=== PATIENT | male | born 1990 | race Caucasian/White ===

== ENCOUNTER 2022-03-28 15:57 | Emergency (ER) | payer OTHER, MEDICAID, SELFPAY ==
[2022-03-28 16:12] VITALS: BP 146/78; PULSE 59; RESP 16; TEMP 36.7; O2SAT 99
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
[2022-03-28 19:21] VITALS: BP 115/76; PULSE 85; RESP 16; TEMP 36.8; O2SAT 100
--- NOTE | 2022-03-28 19:27 | PC.NURSE ---
1924 Dr. Melchor at the bedside completing FAST exam with ultrasound
[2022-03-28] MEDS: KETOROLAC 30 MG/ML VIAL IM (19:40)
[2022-03-28] MEDS: HYDROCODONE/ACET 5/325 PREPACK 1 BOTTLE MISC (19:40)
[2022-03-28 20:13] VITALS: BP 122/65; PULSE 65; RESP 18; O2SAT 99
== END 2022-03-28 20:13 | disposition home or self-care (01) ==
PROVIDERS: Emergency Provider Emergency Medicine
DX: R07.89 Other chest pain (principal); M25.511 Pain in right shoulder; S83.91XA Sprain of unspecified site of right knee, initial encounter; V89.2XXA Person injured in unspecified motor-vehicle accident, traffic, initial encounter
CPT/HCPCS: 70450; 71101; 72125; 73030; 73502; 73562; 96372; 99283; 99284; J1885

== ENCOUNTER 2022-07-13 10:05 | Emergency (ER) | payer OTHER, MEDICAID, SELFPAY ==
[2022-07-13] VITALS (9 sets, daily range): BP systolic 127–161; BP diastolic 73–90; PULSE 42–61; RESP 24; TEMP 35.1; O2SAT 96–100; BMI 24.4
--- NOTE | 2022-07-13 10:06 | DI.US.S_ITS ---
PROCEDURE: US SCROTUM INDICATIONS: SEVERE LEFT TESTICLE PAIN TECHNIQUE: Real-time scanning was performed of the scrotum and testicles, with image documentation. Color and pulse Doppler interrogation was performed of both testicles. COMPARISON: None. FINDINGS: Right: Testicle is normal in size at 5.2 x 4.1 x 2.2 cm, and homogenous in echotexture. There is a 1.5 x 1.9 x 1.1 cm simple cyst in the epididymal head. Epididymis is otherwise normal in overall size and morphology. No hydrocele or varicoceles. Overlying scrotal skin is normal in thickness. Left: Testicle is normal in size at 5.0 x 3.4 x 1.7 cm, and homogeneous in echotexture. Epididymis is normal in overall size and morphology. No hydrocele or varicoceles. Overlying scrotal skin is normal in thickness. There is no abnormality on ultrasound in the area of the palpable lump. Doppler: Color and pulse Doppler demonstrate normal and symmetric arterial flow in both testicles. IMPRESSION: 1. A cause for severe left testicular pain is not identified. No findings to suggest testicular torsion. No testicular mass. 2. No abnormality is identified in the area of palpable abnormality in the left scrotum. 3. A 1.9 cm simple epididymal cyst or spermatocele. Dictated by: Latha Navarro M.D. on 07/13/2022 at 11:57 Approved by: Latha Navarro M.D. on 07/13/2022 at 12:02
[2022-07-13] MEDS: KETOROLAC 30 MG/ML VIAL 15 MG IV (10:20)
[2022-07-13] MEDS: SODIUM CHLORIDE 0.9% 1,000 ML 1000 ML IV (10:20)
--- NOTE | 2022-07-13 10:26 | ED.GENADULT ---
HPI - General Adult General Chief complaint: Urogenital-Male Stated complaint: Testicle Pain Time Seen by Provider: 07/13/22 10:07 Source: patient and EMS Mode of arrival: EMS History of Present Illness HPI narrative: 31-year-old male former smoker with a few prior seizures (no ongoing treatment) presents by EMS for evaluation of a sudden-onset left testicular pain. He states that he went to bed in his normal state of health and woke up in his normal state of health and was attempting to urinate when he felt a sudden and severe left testicular pain that radiates into his left lower abdomen and perhaps his back. His pain is worse when he moves and improves with rest. He denies any fever or chills. He has been nauseated but denies any vomiting. He denies dysuria, frequency or urgency and has had no penile discharge. He denies any trauma or injury. He denies any history of the same. EMS gave fentanyl in route and it seemed to help take the edge off Related Data Previous Rx's Medication Instructions Recorded hydrocodone 5 mg-acetaminophen 325 1 tab PO Q6H PRN pain #10 tabs 03/28/ mg tablet hydrocodone 5 mg-acetaminophen 325 1 tab PO Q4-6H PRN pain #10 tabs 07/13/22 mg tablet ketorolac 10 mg tablet 10 mg PO Q6H PRN pain #14 tabs 07/13/22 ondansetron 4 mg disintegrating 4 mg PO TID-QID PRN nausea and 07/13/22 tablet vomiting #10 tabs tamsulosin 0.4 mg capsule (Flomax) 0.4 mg PO DAILY #30 caps 07/13/22 Allergies Allergy/AdvReac Type Severity Reaction Status Date / Time amoxicillin Allergy Verified 07/13/22 10:21 Penicillins Allergy Verified 07/13/22 10:21 Review of Systems Review of Systems Narrative: GENERAL: Denies chills, fatigue, malaise, fever, sweats. HEENT: Denies sinus pain, ear pain, sore throat, difficulty swallowing, dizziness. RESPIRATORY: Denies dyspnea, cough, wheezing, hemoptysis, sputum. CARDIOVASCULAR: Denies chest pain, palpitations, orthopnea, edema, GASTROINTESTINAL: See HPI : See HPI MUSCULOSKELETAL: denies weakness, joint pain, or bony pain SKIN: Denies rash, skin lesions, or other NEUROLOGIC: Denies weakness, headache, numbness, change in speech, confusion, seizures, incoordination. PSYCHIATRIC: No concerning psychosocial issues. 12 point review of systems is negative except for those stated above Patient History Social History Smoking Status: Former smoker Smoking Status: Former smoker Substance Use Type: marijuana Exam Narrative Exam Narrative: GENERAL: [31] year old patient appears stated age. Well-developed patient, in obvious distress. Complaining of pain HEAD: Atraumatic. Normocephalic. EYES: Pupils equal round and reactive. Extraocular motions intact. No scleral icterus. No injection or drainage. ENT: Nose without bleeding, purulent drainage. Throat without erythema, tonsillar hypertrophy or exudate. Airway patent. NECK: Trachea midline. Non tender CARDIOVASCULAR: Regular rate and rhythm without murmurs, gallops, or rubs. RESPIRATORY: Clear to auscultation. Breath sounds equal bilaterally. No wheezes, rales, or rhonchi. GASTROINTESTINAL: Abdomen soft, non-tender, nondistended. : No swelling or redness, no tenderness to palpation of left testicle, no left inguinal pain EXTREMITIES: No edema or joint tenderness. BACK: Nontender without deformity or crepitance. Left flank pain on palpation, no swelling, redness, induration or fluctuance, no subcu emphysema NEURO: AOx3. SKIN: No rash or erythema of visible areas Initial Vital Signs Initial Vital Signs: Vital Signs Pulse Rate 53 L 07/13/22 10:16 Pulse Oximetry 100 07/13/22 10:16 Course Orders Ordered: ED Orders 07/13/22 10:06 US scrotum Stat 07/13/22 10:18 BMP [Basic Metabolic Panel] Stat CBC Auto Diff [Complete Blood Count AUTO DIFF] Stat 07/13/22 10:24 [place] [facility] [place] Stat 07/13/22 10:49 Urine Microscopic Stat 07/13/22 11:30 CT kidney ureter bladder (KUB) Stat Discontinued Medications Hydromorphone HCl (Hydromorphone 0.5 Mg Inj) 0.5 mg IV NOW ONE Stop: 07/13/22 10:56 Last Admin: 07/13/22 10:59 Dose: 0.5 mg Documented By: NR Sodium Chloride (Normal Saline 0.9%) 1,000 mls @ 1,000 mls/hr IV BOLUS ONE Stop: 07/13/22 11:05 Last Infusion: 07/13/22 11:00 Dose: 0 mls/hr Documented By: Admin: 07/13/22 10:20 Dose: 1,000 mls/hr Documented By: NR Lidocaine HCl 6 ml/ Sodium (Chloride) 56 mls @ 336 mls/hr IV NOW ONE Stop: 07/13/22 11:45 Last Infusion: 07/13/22 12:22 Dose: 0 mls/hr Documented By: Admin: 07/13/22 12:09 Dose: 336 mls/hr Documented By: NR Ketorolac Tromethamine (Ketorolac 30 Mg/Ml Vial) 15 mg IV NOW ONE Stop: 07/13/22 10:07 Last Admin: 07/13/22 10:20 Dose: 15 mg Documented By: NR Reevaluation(s) Reevaluation #1: Improved after Toradol Time: 10:30 Vital Signs Vital signs: Vital Signs - 8 hr 07/13/22 10:21 07/13/22 10:16 07/13/22 10:30 Temperature 95.2 F L Pulse Rate 42 L 53 L 49 L Respiratory Rate 24 Blood Pressure 154/81 H Pulse Oximetry 96 100 99 Oxygen Delivery Method Room Air 07/13/22 10:41 07/13/22 10:41 07/13/22 11:00 Temperature Pulse Rate 53 L 46 L Respiratory Rate Blood Pressure 148/73 H Pulse Oximetry 100 100 Oxygen Delivery Method 07/13/22 11:34 07/13/22 11:35 07/13/22 11:35 Temperature Pulse Rate 57 L 45 L Respiratory Rate Blood Pressure 161/90 H Pulse Oximetry 100 98 Oxygen Delivery Method 07/13/22 12:00 07/13/22 12:01 07/13/22 12:01 Temperature Pulse Rate 61 44 L Respiratory Rate Blood Pressure 127/76 Pulse Oximetry 98 99 Oxygen Delivery Method Medical Decision Making Lab Data 07/13/22 10:18 07/13/22 10:18 Labs: Lab Results 07/13/22 07/13/22 07/13/22 Range/Units 10:18 10:18 10:49 WBC 7.2 (4.5-11.0) X10^3/uL RBC 4.78 (4.5-5.9) X10^6/uL Hgb 14.5 (13.5-17.5) g/dL Hct 42.7 (41-53) % MCV 89.4 (80-100) fL MCH 30.3 (26-34) PG MCHC 33.9 (30-36) % RDW 12.9 (11.6-14.8) % Plt Count 283 (150-400) X10^3/uL Neut % (Auto) 59.6 (50-75) % Lymph % (Auto) 27.8 (25-40) % [place] % (Auto) 6.8 (3-14) % Eos % (Auto) 4.5 H (2-4) % Baso % (Auto) 1.3 (0-2) % Neut # (Auto) 4300 (3078-9267) /uL Lymph # (Auto) 2000 (7855-3412) /uL [place] # (Auto) 500 (0-900) /uL Eos # (Auto) 300 (0-450) /uL Baso # (Auto) 100 (0-100) /uL Sodium 140 (137-145) mmol/L Potassium 4.1 (3.4-5.1) mmol/L Chloride 105 (98-107) mmol/L Carbon Dioxide 25 (22-32) mmol/L BUN 15 (9-20) mg/dL Creatinine 0.75 (0.66-1.25) mg/dL Estimated GFR > 60 (>60) mL/min BUN/Creatinine Ratio 20.0 (6-22) Glucose 118 H (70-100) mg/dL Calcium 9.7 (8.4-10.2) mg/dL Urine RBC >100/hpf H (0-5/HPF) Urine WBC 1-5/hpf (0-5/HPF) Urine Bacteria Many (>30) H (None) Urine Mucus 1+ H (Negative) Ur Culture Indicated? Cult not indicated Urine Dip Bedside Urine Glucose Negative Bedside Urine Bilirubin - Negative Bedside Urine Ketone - Negative Urine Specific [place] 1.015 Bedside Urine Occult Blood +++ Bedside Urine pH 7.5 Bedside Urine Protein + 30 Bedside Urine Urobilinogen - Negative Bedside Urine Nitrite - Negative Bedside Urine Leukocytes - Negative Esterase Point of care testing: Urine Dip Bedside Urine Glucose Negative Bedside Urine Bilirubin - Negative Bedside Urine Ketone - Negative Urine Specific [place] 1.015 Bedside Urine Occult Blood +++ Bedside Urine pH 7.5 Bedside Urine Protein + 30 Bedside Urine Urobilinogen - Negative Bedside Urine Nitrite - Negative Bedside Urine Leukocytes - Negative Esterase Imaging Data CT scan - abdomen/pelvis: Radiologist's Impression: Close Abdomen/Pelvis CT (Signed) Latha Navarro - 07/13/22 Scrotum Ultrasound 07/13/22 Launch?[address] [address] [address] Scan Report Signed Patient: Venkatesh Rai MR#: [id number] : 1990 Acct:[id number] Age/Sex: 31 / M Date of Service: 07/13/22 Loc: ED Accession Number: [id number] ?? Procedure: CT kidney ureter bladder (KUB) Ordering Provider: Vitaly Elizalde D.O. PROCEDURE:? CT KIDNEY URETER BLADDER (KUB) ? INDICATIONS:? left lower quadrant pain, testicular, left flank ? TECHNIQUE:? Axial sections were acquired from the lung bases to the pubic symphysis.? Coronal and sagittal reformats were performed.? For radiation dose reduction, the following was used: ?automated exposure control, adjustment of mA and/or kV according to patient size.? ? COMPARISON:? [facility], CT, CT KUB, 05/07/2021, 23:40. ? FINDINGS:? Image quality:? Excellent.? ? Lung bases:? Unremarkable. Small hiatal hernia.? Heart:? No significant findings. ? URINARY: Right Kidney: ? High attenuation of renal medulla suggesting medullary calcinosis.? No stones or hydronephrosis.? Right Ureter:? No hydroureter.? ? Left Kidney: ? High attenuation of renal medulla suggesting medullary calcinosis.? No stones.? Mild hydronephrosis. Left Ureter:? There is a 4 x 6 mm stone in the proximal left ureter demonstrating CT density 549 HU. ? Bladder:? Normal wall thickness. No stones. ? ? ? ABDOMEN: Liver:? Unremarkable.? ? Gallbladder:? Unremarkable.? ? Biliary ducts:? Unremarkable.? ? Pancreas:? Unremarkable.? ? Spleen:? Unremarkable.? ? Adrenal Glands:? Unremarkable.? ? ? Stomach and Bowel:? Stomach, small bowel loops, and colon are unremarkable.? Peritoneum:? There is mesenteric stranding and numerous small subcentimeter mesenteric lymph nodes.? No abnormal intraperitoneal fluid.? No free air.? ? Ventral Wall: ? No hernia.? Abdominal Nodes:? No enlarged retroperitoneal or mesenteric lymph nodes.? Vessels:? Aorta and inferior vena cava are normal in size.? ? PELVIS: Pelvic Organs:? Unremarkable.? ? Pelvic Nodes: Unremarkable. Miscellaneous: No inguinal hernias are seen. ? ? ? Bones:? A calcific within the femoral head. ? IMPRESSION:? ? 1. A 4 x 6 mm stone in the proximal left ureter causing mild left hydronephrosis. 2. 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 3. Mesenteric stranding and numerous small subcentimeter mesenteric lymph nodes consistent with mesenteric panniculitis/adenitis.? Dictated by: Latha Navarro M.D. on 07/13/2022 at 11:44 ? ? Approved by: Latha Navarro M.D. on 07/13/2022 at 11:54 ? MDM Narrative Medical decision making narrative: CC: 31-year-old male with sudden onset left lower quadrant pain when attempting to urinate, no trauma or injury, no urinary complaints otherwise Complicating co-morbidities: None known Data collected from: Patient Medical records reviewed: Prior ED visits noted Differential considered, but not limited to: Testicular torsion, epididymitis, varicocele, UTI, kidney stone versus other Exam documented above, pertinent findings include: No pain, swelling or abnormal external manifestation of illness on exam, abdomen soft and nontender, mild left CVA tenderness Lab Test results independently reviewed as above. Pertinent findings: No leukocytosis, anemia, electrolyte abnormality or kidney abnormality Imaging studies independently reviewed: CT demonstrates 4 x 6 mm stone mid left ureter with mild hydro Treatments: Toradol, Dilaudid, lidocaine drip, fluids Re-evaluations: Improved after above-stated therapies Discussion: Left-sided kidney stone in the absence of infection, sepsis or renal failure. Pain controlled, tolerating orals appropriate for discharge and follow-up with urology Disposition: see below, along with detailed discharge instructions that have been reviewed with patient as well as indications for ED re-evaluation and additional outpatient follow up Discharge Plan Departure Patient Disposition: Home Clinical Impression: Kidney calculi Instructions: DI for Kidney Stones Activity Restrictions/Additional Instructions: *You have been diagnosed with [left-sided kidney stone] *What to do: *Please continue to take your regular medications as directed. [ x] New medication prescriptions sent to your pharmacy: [[facility] in [place] ] [ ] New medication written as a paper prescription [ ] No new medications given *Please follow up with your primary care provider in 2-3 days, call for an appointment. Let them know you were seen in the Emergency Department and that we ask that you be seen in follow up. We will electronically transmit a record of today's note if your PCP is in our system *If you do not have a primary care provider please contact the [facility] Resource line at [phone]. They will ask some questions about your medical history and help get you set up with a doctor in the community. *Also, as we discussed I have included contact info for local urologist Dr. Terry *Return to Emergency Department if you should have any new, worsening or concerning symptoms, such as [fever greater than 101 F, shaking chills, worsening pain, persistent vomiting or other bothersome symptoms] Prescriptions: New hydrocodone-acetaminophen 5-325 mg tablet 1 tab PO Q4-6H PRN (Reason: pain) Qty: 10 0RF ketorolac 10 mg tablet 10 mg PO Q6H PRN (Reason: pain) Qty: 14 0RF tamsulosin [Flomax] 0.4 mg capsule 0.4 mg PO DAILY Qty: 30 0RF ondansetron 4 mg tablet,disintegrating 4 mg PO TID-QID PRN (Reason: nausea and vomiting) Qty: 10 0RF No Action hydrocodone-acetaminophen 5-325 mg tablet 1 tab PO Q6H PRN (Reason: pain) Qty: 10 0RF Referrals: Roma Terry MD [Physician] - Stand Alone Forms: Patient Portal/API
[2022-07-13 10:30] LABS: Add Manual Diff / Slide Review NO; Basophils Absolute Auto 100 /uL (0-100); Basophils Percent Auto 1.3 % (0-2); Eosinophils Absolute Auto 300 /uL (0-450); Eosinophils Percent Auto 4.5 % (2-4); Hematocrit 42.7 % (41-53); Hemoglobin 14.5 g/dL (13.5-17.5); Lymphocytes Absolute Auto 2000 /uL (1100-4500); Lymphocytes Percent Auto 27.8 % (25-40); Mean Corpuscular HGB Conc 33.9 % (30-36); Mean Corpuscular Hemoglobin 30.3 PG (26-34); Mean Corpuscular Volume 89.4 fL (80-100); Monocytes Absolute Auto 500 /uL (0-900); Monocytes Percent Auto 6.8 % (3-14); Neutrophils Absolute Auto 4300 /uL (1500-7000); Neutrophils Percent Auto 59.6 % (50-75); Platelet Count 283 X10^3/uL (150-400); Red Blood Cell Count 4.78 X10^6/uL (4.5-5.9); Red Cell Distribution Width 12.9 % (11.6-14.8); White Blood Cell Count 7.2 X10^3/uL (4.5-11.0)
[2022-07-13 10:38] LABS: Blood Urea Nitrogen 15 mg/dL (9-20); Calcium 9.7 mg/dL (8.4-10.2); Carbon Dioxide 25 mmol/L (22-32); Chloride 105 mmol/L (98-107); Estimated Glomerular Filt Rate > 60 mL/min (>60); Glucose 118 mg/dL (70-100); HEMOLYSIS 21 (0-50); Potassium 4.1 mmol/L (3.4-5.1); Sodium 140 mmol/L (137-145)
[2022-07-13] MEDS: HYDROMORPHONE 0.5 MG INJ IV (10:59)
--- NOTE | 2022-07-13 11:30 | DI.CT.S_ITS ---
PROCEDURE: CT KIDNEY URETER BLADDER (KUB) INDICATIONS: left lower quadrant pain, testicular, left flank TECHNIQUE: Axial sections were acquired from the lung bases to the pubic symphysis. Coronal and sagittal reformats were performed. For radiation dose reduction, the following was used: automated exposure control, adjustment of mA and/or kV according to patient size. COMPARISON: [facility], CT, CT KUB, 05/07/2021, 23:40. FINDINGS: Image quality: Excellent. Lung bases: Unremarkable. Small hiatal hernia. Heart: No significant findings. URINARY: Right Kidney: High attenuation of renal medulla suggesting medullary calcinosis. No stones or hydronephrosis. Right Ureter: No hydroureter. Left Kidney: High attenuation of renal medulla suggesting medullary calcinosis. No stones. Mild hydronephrosis. Left Ureter: There is a 4 x 6 mm stone in the proximal left ureter demonstrating CT density 549 HU. Bladder: Normal wall thickness. No stones. ABDOMEN: Liver: Unremarkable. Gallbladder: Unremarkable. Biliary ducts: Unremarkable. Pancreas: Unremarkable. Spleen: Unremarkable. Adrenal Glands: Unremarkable. Stomach and Bowel: Stomach, small bowel loops, and colon are unremarkable. Peritoneum: There is mesenteric stranding and numerous small subcentimeter mesenteric lymph nodes. No abnormal intraperitoneal fluid. No free air. Ventral Wall: No hernia. Abdominal Nodes: No enlarged retroperitoneal or mesenteric lymph nodes. Vessels: Aorta and inferior vena cava are normal in size. PELVIS: Pelvic Organs: Unremarkable. Pelvic Nodes: Unremarkable. Miscellaneous: No inguinal hernias are seen. Bones: A calcific within the femoral head. IMPRESSION: 1. A 4 x 6 mm stone in the proximal left ureter causing mild left hydronephrosis. 2. 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 3. Mesenteric stranding and numerous small subcentimeter mesenteric lymph nodes consistent with mesenteric panniculitis/adenitis. Dictated by: Latha Navarro M.D. on 07/13/2022 at 11:44 Approved by: Latha Navarro M.D. on 07/13/2022 at 11:54
[2022-07-13 11:55] LABS: Bacteria Urine Many (>30); Culture Indicated Urine Cult Not Indicated; Mucus Urine 1+ (Negative); RBC Urine >100/HPF (0-5/HPF); WBC Urine 1-5/HPF (0-5/HPF)
[2022-07-13] MEDS: LIDOCAINE 2% (PF) 6 ML in SODIUM CHLORIDE 0.9% 50 ML 336 ML IV (12:09)
== END 2022-07-13 12:44 | disposition home or self-care (01) ==
PROVIDERS: Emergency Provider Emergency Medicine
DX: N20.0 Calculus of kidney (principal)
CPT/HCPCS: 74176; 76870; 80048; 81003; 81015; 85025; 93975; 96361; 96374; 96375; 99284; J1170; J1885